=== PATIENT | female | born 1955 | race African-American/Black ===

== ENCOUNTER 2017-11-13 21:52 | Inpatient (IN) | payer OTHER ==
[~2017-11-13] VITALS: Ht 167.6 cm; Wt 126.6 kg
--- NOTE | 2017-11-13 22:00 | NUR ---
PATIENT PRESENTS TO ED BIBA D/T LOWER ABDOMINAL AND SUPRA PUBIC PAIN X1 DAY. PATIENT STATES SHE WAS AT THE BUS STOP ON HER WAY TO A HOSPITAL WHEN THE PAIN GOT UNBEARABLE AND SHE CALLED FOR AN AMBULANCE. PATIENT STATES SHE FEELS LIKE SHE IS HAVING CONTRACTIONS AND STATES IT MIGHT BE DUE TO A SURGERY SHE HAS HAD IN THE PAST BUT DOES NOT RECALL THE NAME OF THE SURGERY. PATIENT STATES PAIN 8/10 AT THIS TIME. PATIENTS SKIN IS DRY AND INTACT WITH ERYTHEMA, SWELLING AND A BLISTER NOTED ON RIGHT HAMEED; ER MD MADE AWARE OF OF PATIENT STATUS. PATIENT HAS FEVER 100.8 AT THIS TIME WILL MEDICATE PER PROTOCOL AND ORDERED. PATIENT PLACED ON MONITOR WILL CONTINUE TO MONITOR PATIENT
[2017-11-13] MEDS ORDERED: NACL 0.9% 2,000 ML IV ONE (22:15)
[2017-11-13] MEDS ORDERED: MORPHINE SULFATE 4 MG/ML SYR IVP ONE (22:15)
[2017-11-13] MEDS ORDERED: ACETAMINOPHEN EXTRA STRENGTH 500 MG TAB PO ONE (22:15)
[2017-11-13] MEDS ORDERED: ONDANSETRON 4 MG/2 ML VIAL IVP ONE (22:15)
[2017-11-13] MEDS ORDERED: PIPERACILLIN/TAZOBACTAM 4.5 GM in DEXTROSE 5% 100 ML IV ONE (22:15)
--- NOTE | 2017-11-13 22:23 | NUR ---
PT TO CT VIA GURCORI IN STABLE CONDITION.
[2017-11-13 22:46] LABS: BASOPHILS % (AUTO) 0.3 % (0.0-2.0); EOSINOPHILS # (AUTO) 0.1 K/uL (0-0.4); EOSINOPHILS % (AUTO) 0.9 % (0.0-4.0); HEMOGLOBIN 11.5 g/dL (12.0-16.0); LYMPHOCYTES # (AUTO) 2.4 K/uL (2.5-16.5); LYMPHOCYTES % (AUTO) 22.6 % (20.5-51.1); MEAN CORPUSCULAR HEMOGLOBIN 27 pg (27-31); MEAN CORPUSCULAR HGB CONC 32 g/dL (33-37); MEAN CORPUSCULAR VOLUME 85.2 fL (80-94); MONOCYTES # (AUTO) 0.9 K/uL (0.8-1.0); MONOCYTES % (AUTO) 8.9 % (1.7-9.3); NEUTROPHILS # (AUTO) 7.1 K/uL (1.8-7.7); NEUTROPHILS % (AUTO) 67.3 % (42.2-75.2); PLATELET COUNT (AUTO) 225 K/uL (140-450); RED BLOOD CELL COUNT(AUTO) 4.22 MIL/uL (4.20-5.40); RED CELL DISTRIBUTION WIDTH 15.4 % (11.6-13.7); WHITE BLOOD COUNT (AUTO) 10.5 K/uL (4.8-10.8)
[2017-11-13] MEDS ORDERED: PIPERACILLIN/TAZOBACTAM 2.25 GM VIAL IV ONE (23:01)
[2017-11-13 23:12] LABS: ANION GAP 7.2 (8-16); CARBON DIOXIDE 31.9 mmol/L (21-32); CREATININE 0.9 mg/dL (0.6-1.3); POTASSIUM 3.1 mmol/L (3.5-5.1)
[2017-11-13 23:17] LABS: TOTAL BILIRUBIN 0.4 mg/dL (0.0-1.0)
[2017-11-13 23:18] LABS: CREATINE KINASE MB 1.9 ng/mL (0-3.6); PROTHROMBIN TIME 10.4 secs (10.8-13.4)
--- NOTE | 2017-11-14 00:06 | NUR ---
PATIENTS BP 96/39 ER MD MADE AWARE OF PATIENT STATUS. PATIENT IS ASYMPTOMATIC AND RESTING AT THIS TIME. WHEN WOKEN PATIENT IS ALERT AND ORIENTED. WILL CONTINUE TO MONITOR.
[2017-11-14] MEDS ORDERED: NACL 0.9% 1,000 ML IV ONE (00:45)
--- NOTE | 2017-11-14 01:17 | NUR ---
PER ADMITTING, [facility] WAS CALL[facility], MESSAGE WAS LEFT. WAITING FOR CALL BACK AT THIS TIME
[2017-11-14 01:44] LABS: APPEARANCE,URINE CLEAR (CLEAR); BILIRUBIN,URINE NEGATIVE (NEGATIVE); BLOOD, URINE TRACE-I (NEGATIVE); COLOR,URINE YELLOW (YELLOW); LEUKOCYTE ESTERASE ,URINE 2+ (NEGATIVE); NITRITE, URINE NEGATIVE (NEGATIVE); PH,URINE 6.5 (5.0-9.0); UGLUCOSE NEGATIVE (NEGATIVE)
[2017-11-14] MEDS ORDERED: NACL 0.9% 1,000 ML IV SCH (01:57)
[2017-11-14] MEDS ORDERED: ONDANSETRON 4 MG/2 ML VIAL IVP PRN (02:00)
[2017-11-14] MEDS ORDERED: LORazepam 2 MG/ML VIAL IVP PRN (02:00)
[2017-11-14 02:23] VITALS: BP 124/65
--- NOTE | 2017-11-14 02:23 | NUR ---
ADMITTED A 62F FROM ER. CAME BY SE WITH ER NURSE. REPORT GIVEN AT BEDSIDE. MED SURG PT. AWAKE,ALERT AND ORIENTED X4. ON O22L/NC. NO DISTRESS NOTED. DENIES ANY ABDOMINAL PAIN AT THIS TIME. AFEBRILE. WITH BLE WEAKNESS. PT IS HOMELESS . SHE BROUGHT WITH HER ALL HER PERSONAL BELONGINGS. ABLE TO WALK FROM [facility] TO BED WITH SOME DIFFICULTY .HAS HL ON THE RT WRIST G#20,CLEAR AND PATENT. PT IS OBESE. SKIN INTACT EXCEPT FOR THE RT LOWER LEG BLISTER STILL INTACT. BOTH LOWER LEGS EDEMA 2+. ORIENTED PT TO HOSPITAL ROUTINES. PLAN OF CARE DISCUSSED AND VERBALIZED UNDERSTANDING. BED ON LOW POSITION. CALL LIGHT PLACED WITHIN EASY REACH. INSTRUCTED TO CALL IF RADHA TO GET UP TO BATHROOM AND FOR ANY ASSISTANCE NEEDED. WILL FOLLOW UP ADMIT ORDERS. WILL CONTINUE TO MONITOR.
--- NOTE | 2017-11-14 02:38 | NUR ---
Pt report given to VIANEY GALLARDO. Transfer of care at this time.
[2017-11-14 02:41] LABS: RBC,URINE 3-10 (FEW) /HPF (0-5); WBC,URINE TOO MANY TO COUNT /HPF (0-5)
[2017-11-14] MEDS ORDERED: PIPERACILLIN/TAZOBACTAM 3.375 GM VIAL IV ONE (04:49)
[2017-11-14] MEDS: PIPERACILLIN/TAZOBACTAM 3.375 GM in DEXTROSE 5% 50 ML IV SCH ×2 (05:00→13:31)
--- NOTE | 2017-11-14 05:00 | NUR ---
ZOSYN IVPB GIVEN ORDERED. NO C/O ANY PAIN NOTED AT THIS TIME.
[2017-11-14] MEDS ORDERED: POTASSIUM CHLORIDE 10 MEQ TABER PO PRN (05:55)
--- NOTE | 2017-11-14 05:56 | NUR ---
PAGED DR. RODRIGUES FOR K LEVEL 3.1 ,IVF AND 4+ BACTERIA ON THE URINE. CALLED BACK WITH ORDERS.
[2017-11-14] MEDS: NACL 0.9% 1,000 ML IV SCH ×2 (06:25→20:57)
--- NOTE | 2017-11-14 07:30 | NUR ---
ENDORSED PT IN STABLE CONDITION TO AM NURSE
--- NOTE | 2017-11-14 07:35 | NUR ---
RECEIVED REPORT FROM SEAT COVERS TRIMMER NURSE. PT IS SLEEPING IN BED BUT EASILY AWAKEN, AAOX4, AMBULATES WITH ASSIST, PT HAS BLISTER ON RIGHT LOWER EXT. IV IS ON THE RIGHT WRIST, PATENT, INTACT, FLUSHING WELL, ON ROOM AIR, NO S/S OF RESPIRATORY DISTRESS OR DISCOMFORT NOTED, DISCUSSED PLAN OF CARE WITH PT, PT VERBALIZED UNDERSTANDING, CALL LIGHT IS WITHIN REACH, WILL CONTINUE TO MONITOR.
[2017-11-14 08:00] VITALS: BP 112/70
[2017-11-14] MEDS: MORPHINE SULFATE 2 MG/ML SYR IVP PRN ×3 (08:15→20:58)
[2017-11-14] MEDS: ENOXAPARIN 40 MG/0.4 ML SYR SUBQ SCH (08:20)
--- NOTE | 2017-11-14 08:20 | NUR ---
DUE MEDICATIONS GIVEN. PT TOLERATED WELL, CALL LIGHT WITHIN REACH.
--- NOTE | 2017-11-14 09:06 | NUR ---
PATIENT HAS BEEN SCREENED AND CATEGORIZED HIGH NUTRITION RISK. PATIENT WILL BE SEEN WITHIN 1-2 DAYS OF ADMISSION. 11/14/17 11/15/[address]
--- NOTE | 2017-11-14 11:00 | NUR ---
PT RESTING IN BED, WATCHING TV, ALL NEEDS ARE MET, CALL LIGHT WITHIN REACH.
--- NOTE | 2017-11-14 15:00 | NUR ---
DR. SHORT HERE TO SEE PATIENT.
[2017-11-14 16:00] VITALS: BP 133/60
[2017-11-14] MEDS ORDERED: LEVOFLOXACIN 500 MG/D5W PREMIX 100 ML IV ONE (16:00)
[2017-11-14] MEDS: metroNIDAZOLE 500 MG TAB PO SCH (16:11)
[2017-11-14] MEDS: PIPER/TAZO 3.375GM/D5W PREMIX 50 ML IV SCH (18:36)
--- NOTE | 2017-11-14 19:10 | NUR ---
ENDORSED PT TO REGULATED PROGRAM MANAGER NURSE FOR CONTINUITY OF CARE. PT STABLE AT THIS TIME.
--- NOTE | 2017-11-14 19:11 | NUR ---
RECEIVED REPORT FROM DAYSHIFT NURSE AT BEDSIDE FOR CONTINUITY OF CARE. PT IV NOTED R WRIST 20G NS 70ML/HR. NO SOB NO S/S OF DISTRESS ON RA. PT HAD BLISTER ON LEG. BED LOWERED BEDSIDE COMMODE. CALL LIGHT WITHIN REACH.
--- NOTE | 2017-11-14 20:00 | NUR ---
WHILE ASSESSING PT VITALS. PT NOTES PURELENT DRAINAGE COMING FROM LEG WHERE BLISTER IS AT. I CLEANED IT WITH BETADINE AND PUT A 2X2 GAUZE DRESSING. WILL CONTINUE TO MONITOR.
--- NOTE | 2017-11-14 21:58 | NUR ---
ADMIN PAIN MEDICATION 1HR AGO. PT IS SLEEPING. PAIN MED EFFECTIVE WILL CONTINUE TO MONITOR.
[2017-11-15] VITALS: BP 132/74
[2017-11-15] MEDS ORDERED: PIPERACILLIN/TAZOBACTAM 3.375 GM VIAL IV ONE (00:46)
[2017-11-15] MEDS: PIPER/TAZO 3.375GM/D5W PREMIX 50 ML IV SCH ×3 (00:48→11:41)
--- NOTE | 2017-11-15 04:42 | NUR ---
PT IS CURRENTLY SLEEPING NO SOB NO S/S OF DISTRESS. WILL CONTINUE TO MONITOR.
--- NOTE | 2017-11-15 04:56 | NUR ---
PT REQUESTED TYLENOL FOR MURDOCK. 1 HR AGO PT CURRENTLY DENIES MURDOCK. WILL CONTINUE TO MONITOR.
--- NOTE | 2017-11-15 06:00 | NUR ---
ADMIN ZOFRAN FOR PT 1HR AGO BECAUSE PT NAUSEA AND DRY HEAVING. PT CURRENTLY DENIES NAUSEA. WILL CONTINUE TO MONITOR.
[2017-11-15 07:08] LABS: BASOPHILS % (AUTO) 0.2 % (0.0-2.0); EOSINOPHILS # (AUTO) 0.2 K/uL (0-0.4); EOSINOPHILS % (AUTO) 3.4 % (0.0-4.0); HEMATOCRIT 32.7 % (36-48); HEMOGLOBIN 10.5 g/dL (12.0-16.0); LYMPHOCYTES # (AUTO) 1.7 K/uL (2.5-16.5); LYMPHOCYTES % (AUTO) 23.9 % (20.5-51.1); MEAN CORPUSCULAR HEMOGLOBIN 28 pg (27-31); MEAN CORPUSCULAR HGB CONC 32 g/dL (33-37); MEAN CORPUSCULAR VOLUME 86.3 fL (80-94); MONOCYTES # (AUTO) 0.7 K/uL (0.8-1.0); MONOCYTES % (AUTO) 9.4 % (1.7-9.3); NEUTROPHILS # (AUTO) 4.4 K/uL (1.8-7.7); NEUTROPHILS % (AUTO) 63.1 % (42.2-75.2); PLATELET COUNT (AUTO) 193 K/uL (140-450); RED BLOOD CELL COUNT(AUTO) 3.79 MIL/uL (4.20-5.40); RED CELL DISTRIBUTION WIDTH 15.5 % (11.6-13.7)
--- NOTE | 2017-11-15 07:10 | NUR ---
ASSUMED CONTINUITY OF CARE. NO SIGNS AND SYMPTOMS OF ACUTE DISTRESS NOTED. INITIAL ASSESSMENT DONE. KEEP COMFORTABLE ON BED. EXPLAINED DIAGNOSIS, PLAN OF CARE, PAIN MANAGEMENT TEACHING, USE OF CALL LIGHT/BED/TV/BATHROOM. VERBALIZED UNDERSTANDING. FALL PRECAUTION APPLIED. CALL LIGHT WITHIN REACH.
--- NOTE | 2017-11-15 07:18 | NUR ---
ENDORSED REPORT TO DAYSHIFT NURSE AT BEDSIDE FOR CONTINUITY OF CARE.
[2017-11-15 07:37] LABS: ALBUMIN 2.5 g/dL (3.4-5.0); ANION GAP 7.9 (8-16); CARBON DIOXIDE 29.3 mmol/L (21-32); CREATININE 0.8 mg/dL (0.6-1.3); POTASSIUM 3.2 mmol/L (3.5-5.1); TOTAL BILIRUBIN 0.3 mg/dL (0.0-1.0)
[2017-11-15 08:00] VITALS: BP 142/69
[2017-11-15] MEDS: metroNIDAZOLE 500 MG TAB PO SCH ×3 (08:59→17:01)
[2017-11-15] MEDS: ENOXAPARIN 40 MG/0.4 ML SYR SUBQ SCH (09:02)
[2017-11-15] MEDS ORDERED: POTASSIUM CHLORIDE 10 MEQ TABER PO PRN (09:15)
[2017-11-15] MEDS: NACL 0.9% 1,000 ML IV SCH (10:40)
[2017-11-15 12:00] VITALS: BP 136/71
--- NOTE | 2017-11-15 12:00 | NUR ---
VITALS SIGNS STABLE. NO C/O PAIN. WILL MONITOR.
--- NOTE | 2017-11-15 13:01 | NUR ---
FAXED INITIAL REVIEW TO [facility] [phone] PHONE LENNY [phone] FAXED INITIAL REVIEW TO [facility] [phone] PHONE [phone] KAI
--- NOTE | 2017-11-15 13:41 | NUR ---
DR. RODRIGUES CAME AND EXPLAINED ABOUT PT. D/C HOME, INSTRUCTIONS AND TEACHING, PCP FOLLOW UP, AND MD D/C PRESCRIPTION EDUCATION, WOUND (BLISTER PUFFED) CARE. PT. VERBALIZED UNDERSTANDING.
--- NOTE | 2017-11-15 15:10 | NUR ---
SURGICAL CODER -CAREN CAME AND SPOKE TO PT. REGARDING HOMELESS [employer] PACKET.
--- NOTE | 2017-11-15 16:14 | NUR ---
11/15/17 RD INITIAL ASSESSMENT COMPLETED PLEASE REFER TO NUTRITION ASSESSMENT UNDER CARE ACTIVITY FOR ESTIMATED NUTRITIONAL NEEDS. 1. CONTINUE CARDIAC DIET TOLERATED 2. RD TO FOLLOW-UP 5-7 DAYS, LOW RISK JULIA OLVERA RD
[2017-11-15] MEDS ORDERED: LEVO500T2 PO (16:37)
[2017-11-15] MEDS ORDERED: METR250T2 PO (16:39)
[2017-11-15] MEDS ORDERED: TRAM50TA1 PO (16:40)
[2017-11-15] MEDS ORDERED: LEVO750T2 PO (16:42)
[2017-11-15] MEDS ORDERED: LEVOFLOXACIN 500 MG/D5W PREMIX 100 ML IV SCH (17:00)
--- NOTE | 2017-11-15 17:36 | NUR ---
Sandwich Artist Note: I met with patient at bedside. Per patient, prior to hospital admission [place] She stated a protestant is in the process of helping her find an apartment. She stated she plans to follow up with that protestant post discharge. She receives $925 from [employer] monthly, she is not interested on going to a room and board. She uses public transportation (bus) to get to places. Her pcp's office is in [place], [place] and she does not have any difficulty filling her prescriptions at pharmacy. I provided her with a list of homeless shelters, room and boards, and food werner. She thanked me for community resources.
--- NOTE | 2017-11-15 18:10 | NUR ---
D/C HOME VIA WHEELCHAIR. SPEECH CLEAR. NO C/O PAIN. NO SOB, NOTED. IN STABLE CONDITION. INFORMED CHARGE NURSE SANJU WILLS.
--- NOTE | 2017-11-16 07:56 | NUR ---
FAXED DISCHARGE SUMMARY TO [facility] [phone] FAXED DISCHARGE SUMMARY TO [facility] [phone]
== END 2017-11-15 18:10 | disposition home or self-care (01) | DRG 463 ==
LOC: MED 21:52 → MTU 11-14 01:57
PROVIDERS: ADMIT Internal Medicine Pulmonary Disease; ATTEND Internal Medicine Pulmonary Disease
DX: N39.0 Urinary tract infection, site not specified (principal); Z68.42 Body mass index [BMI] 45.0-49.9, adult; K57.32 Diverticulitis of large intestine without perforation or abscess without bleeding; E66.01 Morbid (severe) obesity due to excess calories; L03.115 Cellulitis of right lower limb; I10 Essential (primary) hypertension; S80.829A Blister (nonthermal), unspecified lower leg, initial encounter; K44.9 Diaphragmatic hernia without obstruction or gangrene; Z59.0 Homelessness; Z88.0 Allergy status to penicillin
CPT/HCPCS: 36415; 71045; 80053; 81001; 82550; 82553; 83605; 83690; 84484; 85025; 85610; 85730; 87040; 87081; 87086; 93005; 96361; 96365; 96375; 99285; J1650; J1956; J2270; J2405; J2543; J7030; J7060; Q0092